=== PATIENT | male | born 1965 | race Two or more races ===

== ENCOUNTER 2018-10-27 15:11 | Emergency (ER) | payer MEDICAID ==
[~2018-10-27] VITALS: Ht 177.8 cm; Wt 100.0 kg
[2018-10-27] MEDS ORDERED: LIDOCAINE HCL 1% 20ML VIAL (Pyxis) INJ INFIL ONE (18:45)
[2018-10-27] MEDS ORDERED: BACITRACIN ZINC OINT UDPKT TOP ONE (18:45)
[2018-10-27] MEDS ORDERED: ACETAMINOPHEN 325MG TABLET PO ONE (18:45)
[2018-10-27] MEDS ORDERED: TETANUS, DIPHTHERIA, PERTUSSIS VAC/PF 0.5ML (>7YR OLD) IM ONE (18:45)
[2018-10-27 19:30] VITALS: BP 112/76
== END 2018-10-27 19:37 | disposition home or self-care (01) ==
LOC: ER 15:11
DX: S61.412A Laceration without foreign body of left hand, initial encounter (principal); W26.0XXA Contact with knife, initial encounter; Y93.89 Activity, other specified; Y92.018 Other place in single-family (private) house as the place of occurrence of the external cause
CPT/HCPCS: 12001; 90715; 99283; J3490